=== PATIENT | male | born 1955 | race Caucasian/White ===

== ENCOUNTER 2017-02-18 12:45 | Inpatient (IN) | payer OTHER ==
[~2017-02-18] VITALS: Ht 185.4 cm; Wt 159.9 kg
[~2017-02-18 12:45] MED LIST: ALBU18HF INHALATION; CARSR60 PO; CARV25TA97 PO; CEPH-443 PO; DOXY100T20 PO; FURO40TA4 PO; HYDR-3498 PO; IPRA12.93 INHALATION; LOSA25TA2 PO; MAGN400T27 PO; METF500T PO; NIT4 SL; POTA-57 PO; REPA1TAB14 PO; RIS1 PO
[2017-02-18 15:05] VITALS: Ht 185.4 cm; Wt 159.9 kg
[2017-02-18] MEDS ORDERED: DOCUSATE SODIUM 100 MG CAP PO PRN (16:00)
[2017-02-18] MEDS ORDERED: ONDANSETRON 4 MG INJ IV PRN (16:00)
[2017-02-18] MEDS ORDERED: GLUCOSE GEL 15 GRAM TUBE BUCCAL PRN (16:00)
[2017-02-18] MEDS ORDERED: GLUCAGON 1 MG INJ IM PRN (16:00)
[2017-02-18] MEDS ORDERED: GLUCOSE GEL 15 GRAM TUBE PO PRN ×2 (16:00)
[2017-02-18] MEDS ORDERED: DEXTROSE 50% 50 ML SYRINGE IV PRN ×2 (16:00)
[2017-02-18] MEDS ORDERED: ACETAMINOPHEN 325 MG TAB PO PRN (16:00)
[2017-02-18] MEDS ORDERED: ALBUTEROL 18 GM INHALER INH PRN (16:00)
[2017-02-18] MEDS ORDERED: morphine 2 MG INJ IV PRN (16:00)
[2017-02-18] MEDS ORDERED: NACL 0.9% 3 ML SYG IV SCH (16:00)
[2017-02-18] MEDS ORDERED: NITROGLYCERIN (SL) 0.4 MG TAB SL PRN (16:00)
[2017-02-18 16:10] VITALS: PULSE 88
--- NOTE | 2017-02-18 16:40 | CONS ---
Date/Time of Note Date/Time of Note DATE: 02/18/17 TIME: 16:31 Assessment/Plan Assessment/Plan Additional Assessment/Plan Shortness of breath Chest pain COPD Congestive heart failure, compensated Cardiomyopathy with ejection fraction 50% April 2016 from [facility] facility Hypertension Obesity Psychiatric disorder -Patient with intermittent shortness of breath and chest discomfort. Chest discomfort is sharp in nature not associated with activity and worse with coughing and palpation of chest wall. Laboratory studies from outside facility with troponins of less than 0.012 and 9:13 AM today, BMP 1240. Chest x-ray with no evidence of pleural effusions or significant pulmonary vascular congestion. On review of medical records, patient states he was at [facility] in the past year. I did review electronic medical record discharge summary February 12, 2016 from [facility] records were reviewed from [facility] with cardiac catheterization performed December 27, 2015 with mild nonobstructive coronary artery disease. Given risk factors, would obtain serial cardiac enzymes for thoroughness sake. Continue aspirin therapy and blood pressure control. Check echocardiogram. Consultation Date/Type/Reason Admit Date/Time Feb 18, 2017 at 14:20 Type of Consultation: cv Reason for Consultation Chest pain Hx of Present Illness This is an 61-year-old male with past medical history of hypertension, atrial fibrillation, congestive heart failure, COPD who presents with multiple complaints. Patient complains of symptoms of intermittent shortness of breath. Shortness of breath usually associated with wheezing. He has been having symptoms of a cough over the past few days as well. Cough is mildly productive. He also complains of chest discomfort. Pain is sharp in nature and worse with coughing. He has long-standing history of chest discomfort which lasts for a few days and then resolves. His chest discomfort at times is worse with pressing on his chest. He currently denies any chest discomfort or shortness of breath. He does feel like he is going to start wheezing. He denies any fevers or chills, dizziness or lightheadedness. 12 point review of systems was performed with all pertinent positives and negatives mentioned above and all else is negative Past Medical History Hypertension Congestive heart failure Atrial fibrillation Psychiatric disorder COPD Past Surgical History Past Surgical Hx: no surgical history Family History Significant Family History: no pertinent family hx Social History Smoking Status: Former smoker Other Social History Lives with his brother Exam/Review of Systems Vital Signs Vitals Vital Signs Date Time Temp Pulse Resp B/P Pulse Ox O2 Delivery O2 Flow Rate FiO2 02/18/17 16:10 88 Exam Walking the hallways, no apparent distress Constitutional: alert, obese, oriented Head: normocephalic Neck: supple Respiratory: other (Coarse breath sounds bilaterally, no wheezing) Cardiovascular: other (S1-S2 heard), regular rate and rhythm, systolic murmur ( Faint systolic murmur) Gastrointestinal: bowel sounds, non-tender, other (No guarding), soft Extremities: edema Medications Medications Current Medications Ondansetron HCl (Zofran Inj) 4 mg Q6H PRN IV NAUSEA AND/OR VOMITING; Start 02/18 at 16:00 Acetaminophen (Tylenol Tab) 650 mg Q6H PRN PO PAIN LEVEL 1-3 OR FEVER; Start at 16:00 Acetaminophen/ Hydrocodone Bitart ([place] (5/325)) 1 tab Q6H PRN PO MODERATE PAIN LEVEL 4-6; Start 02/18/17 at 16:00 Morphine Sulfate (morphine) 2 mg Q4H PRN IV SEVERE PAIN LEVEL 7-10; Start at 16:00 Docusate Sodium (Colace) 100 mg Q12H PRN PO CONSTIPATION; Start 02/18/17 at 16: 00 Enoxaparin Sodium (Lovenox) 40 mg DAILY SC ; Start 02/19/17 at 09:00 Aspirin (Aspirin) 81 mg DAILY PO ; Start 02/19/17 at 09:00 Carvedilol (Coreg) 6.25 mg BID PO ; Start 02/18/17 at 21:00 Nitroglycerin (Nitroglycerin (Sl Tab) 0.4 Mg) 1 tab Q5M PRN SL CHEST PAIN; Start 02/18/17 at 16:00 Losartan Potassium (Cozaar) 25 mg DAILY PO ; Start 02/19/17 at 09:00 Risperidone (Risperdal) 1 mg DAILY PO ; Start 02/19/17 at 09:00 Diagnostic Test (Pha) (Accu-Chek) 1 ea 02 XX ; Start 02/19/17 at 02:00 Miscellaneous Information 1 ea NOTE XX ; Start 02/18/17 at 16:00 Glucose (Glutose) 15 gm Q15M PRN PO DECREASED GLUCOSE; Start 02/18/17 at 16:00 Glucose (Glutose) 22.5 gm Q15M PRN PO DECREASED GLUCOSE; Start 02/18/17 at 16:00 Dextrose (D50w Syringe) 25 ml Q15M PRN IV DECREASED GLUCOSE; Start 02/18/17 at 16:00 Dextrose (D50w Syringe) 50 ml Q15M PRN IV DECREASED GLUCOSE; Start 02/18/17 at 16:00 Glucagon (Glucagen) 1 mg Q15M PRN IM DECREASED GLUCOSE; Start 02/18/17 at 16:00 Glucose (Glutose) 15 gm Q15M PRN BUCCAL DECREASED GLUCOSE; Start 02/18/17 at 16: 00 Procedures Procedures ECG done from outside facility and 9:02 AM demonstrates atrial fibrillation at 100 bpm, QRS 106 ms, nonspecific STT wave abnormalities Klaus Emery DO Feb 18, 2017 16:39
[2017-02-18] MEDS: INSULIN ASPART [NOVOLOG] 3 ML PEN SC SCH ×2 (17:20→20:19)
[2017-02-18] MEDS ORDERED: RIVAROXABAN 20 MG TABLET PO SCH (18:05)
--- NOTE | 2017-02-18 19:45 | HP ---
Date/Time of Note Date/Time of Note DATE: 02/18/17 TIME: 19:40 Assessment/Plan VTE Prophylaxis VTE Prophylaxis Intervention: other Lines/Catheters IV Catheter Type (from Nrsg): Saline Lock Assessment/Plan Chief Complaint/Hosp Course 1. Chest pain rule out ACS Trend troponins, cardiology consultation Cardiac meds 2. History of A. fib-rate controlled Cardiology consultation Xarelto and Coreg 3. History of chronic cellulitis in the lower extremities secondary venous stasis-now stable 4. History of psychiatric disorder-no acute issues Prophylaxis: On Xarelto Problems: HPI/ROS Admit Date/Time Admit Date/Time Feb 18, 2017 at 14:20 Hx of Present Illness Patient is a 60-year-old male history of A. fib on anticoagulation, CHF, COPD, diabetes, hypertension, chronic lower extremity cellulitis secondary to venous stasis as well as psychiatric disorder. Patient has had multiple admissions here at [facility] as well as various other hospitals for chest discomfort. Patient presents once again with chest pain he denies any other complaints. ROS Constitutional: improved, no complaints Eyes: no complaints ENT: no complaints Respiratory: no complaints Cardiovascular: chest pain Gastrointestinal: no complaints Genitourinary: no complaints Musculoskeletal: no complaints Skin: no complaints Neurologic: no complaints Endocrine: no complaints Lymphatic: no complaints Psychological: nl mood/affect, no complaints Immunologic: no complaints PMH/Family/Social Past Medical History As per HPI Family History Significant Family History: no pertinent family hx Social History Alcohol Use: heavy Smoking Status: Smoker,current status unk Drug Use: none Exam/Review of Systems Vital Signs Vitals Vital Signs Date Time Temp Pulse Resp B/P Pulse Ox O2 Delivery O2 Flow Rate FiO2 02/18/17 16:10 88 Exam Constitutional: alert Respiratory: clear to auscultation Cardiovascular: regular rate and rhythm Gastrointestinal: soft, No distended Musculoskeletal: nl extremities to inspection Medications Medications Current Medications Ondansetron HCl (Zofran Inj) 4 mg Q6H PRN IV NAUSEA AND/OR VOMITING; Start 02/18 at 16:00 Acetaminophen (Tylenol Tab) 650 mg Q6H PRN PO PAIN LEVEL 1-3 OR FEVER; Start at 16:00 Acetaminophen/ Hydrocodone Bitart ([place] (5/325)) 1 tab Q6H PRN PO MODERATE PAIN LEVEL 4-6; Start 02/18/17 at 16:00 Morphine Sulfate (morphine) 2 mg Q4H PRN IV SEVERE PAIN LEVEL 7-10; Start at 16:00 Docusate Sodium (Colace) 100 mg Q12H PRN PO CONSTIPATION; Start 02/18/17 at 16: 00 Aspirin (Aspirin) 81 mg DAILY PO ; Start 02/19/17 at 09:00 Carvedilol (Coreg) 6.25 mg BID PO ; Start 02/18/17 at 21:00 Nitroglycerin (Nitroglycerin (Sl Tab) 0.4 Mg) 1 tab Q5M PRN SL CHEST PAIN; Start 02/18/17 at 16:00 Losartan Potassium (Cozaar) 25 mg DAILY PO ; Start 02/19/17 at 09:00 Risperidone (Risperdal) 1 mg DAILY PO ; Start 02/19/17 at 09:00 Diagnostic Test (Pha) (Accu-Chek) 1 ea 02 XX ; Start 02/19/17 at 02:00 Miscellaneous Information 1 ea NOTE XX ; Start 02/18/17 at 16:00 Glucose (Glutose) 15 gm Q15M PRN PO DECREASED GLUCOSE; Start 02/18/17 at 16:00 Glucose (Glutose) 22.5 gm Q15M PRN PO DECREASED GLUCOSE; Start 02/18/17 at 16:00 Dextrose (D50w Syringe) 25 ml Q15M PRN IV DECREASED GLUCOSE; Start 02/18/17 at 16:00 Dextrose (D50w Syringe) 50 ml Q15M PRN IV DECREASED GLUCOSE; Start 02/18/17 at 16:00 Glucagon (Glucagen) 1 mg Q15M PRN IM DECREASED GLUCOSE; Start 02/18/17 at 16:00 Glucose (Glutose) 15 gm Q15M PRN BUCCAL DECREASED GLUCOSE; Start 02/18/17 at 16: 00 ALLEGRA RAHMAN Feb 18, 2017 19:45
[2017-02-18 19:58] VITALS: BP 137/93; RESP 18
[2017-02-18 20:08] VITALS: PULSE 89
[2017-02-18] MEDS: HYDROCODONE/APAP (5/325) TAB PO PRN (20:15)
[2017-02-18] MEDS: ALBUTEROL/IPRATROPIUM (NEB) 3 ML AMP HHN PRN (22:29)
[2017-02-19] VITALS (9 sets, daily range): BP systolic 129–149; BP diastolic 78–93; PULSE 83–112; RESP 18–20
[2017-02-19] MEDS ORDERED: ACCU-CHEK XX SCH (02:00)
[2017-02-19] MEDS: HYDROCODONE/APAP (5/325) TAB PO PRN ×3 (02:23→15:18)
[2017-02-19 06:58] LABS: ADD SCAN DIFF NO
[2017-02-19 07:10] LABS: BASOPHILS % 0.1 % (0.0-2.0); HEMATOCRIT 45.5 % (42.0-52.0); LYMPHOCYTES # 0.8 10^3/ul (0.8-2.9); LYMPHOCYTES % 8.4 % (15.0-51.0); MEAN CORPUSCULAR HEMOGLOBIN 29.3 pg (29.0-33.0); MEAN CORPUSCULAR VOLUME 88.9 fl (82.0-101.0); MEAN PLATELET VOLUME 8.9 fl (7.4-10.4); MONOCYTE # 0.5 10^3/ul (0.3-0.9); MONOCYTES % 5.5 % (0.0-11.0); NEUTROPHIL # 8.2 10^3/ul (1.6-7.5); NEUTROPHILS % 85.4 % (39.0-77.0); PLATELET COUNT 184 10^3/UL (140-415); RED BLOOD COUNT 5.12 10^6/ul (4.70-6.10); WHITE BLOOD COUNT 9.6 10^3/ul (4.8-10.8)
[2017-02-19 07:50] LABS: CALCIUM 9.2 mg/dl (8.4-10.2); CREATININE 0.94 mg/dl (0.61-1.24); MAGNESIUM 1.9 mg/dl (1.7-2.5); PHOSPHORUS 3.7 mg/dl (2.5-4.9)
[2017-02-19 07:53] LABS: POTASSIUM 5.4 mmol/L (3.5-5.1)
[2017-02-19] MEDS: INSULIN ASPART [NOVOLOG] 3 ML PEN SC SCH ×2 (08:04→12:07)
[2017-02-19] MEDS ORDERED: ASPIRIN 81 MG TAB PO SCH (09:00)
[2017-02-19] MEDS ORDERED: RISPERIDONE 1 MG TAB PO SCH (09:00)
[2017-02-19] MEDS ORDERED: ENOXAPARIN 40 MG/0.4 ML SYG SC SCH (09:00)
[2017-02-19] MEDS ORDERED: LOSARTAN 25 MG TAB PO SCH (09:00)
--- NOTE | 2017-02-19 10:42 | RADRPT ---
Echocardiogram Report Patient Name: ATILIO BURGESS Gender: Male Date: 1955 Study Date: 19-Feb-2017 School Resource Officer: [facility] Location: 5540 Ref. Physician: KLAUS EMERY Quality: Technically Difficult Study Procedures: Transthoracic echocardiogram with complete 2D, M-Mode, and doppler examination. Indications: Chest Pain, SOB, ? A.S. 2D/M Mode Doppler Measurement Value Normal Ranges Measurement Value Normal Ranges LVIDd 2D 5.9 3.5 - 5.6 cm DARLIN Vmax 0.9 cm2 LVIDs 2D 4.3 2.1 - 4.1 cm DARLIN VTI 0.9 cm2 FS 2D 27.8 % AV Mean Jose 2.3 m/sec LVPWd 2D 1.4 0.6 - 1.1 cm AV Mean PG 24.0 mmHg IVSd 2D 1.3 0.6 - 1.1 cm AV Peak Jose 3.2 m/sec IVS/LVPW 2D 1.0 AV Peak PG 40.0 mmHg AoR Diam 2D 2.9 2.0 - 3.7 cm AV VTI 72.0 cm LA/Ao 2D 2 0 - 1 LVOT Mean Jose 0.7 m/sec EDV 2D 205.0 cm3 LVOT Mean PG 2.0 mmHg ESV 2D 77.3 cm3 LVOT Peak Jose 0.9 m/sec LA Dimen 2D 5.0 2.3 - 4.0 cm LVOT Peak PG 3.0 mmHg LVOT Diam 2.0 cm LVOT VTI 21.1 cm LVOT Area 3.1 cm2 MV E Peak Jose 1.3 m/sec MR Peak PG 45.0 mmHg MR Peak Jose 3.3 m/sec TR Peak Jose 2.8 m/sec TR Peak PG 31.0 mmHg RVSP 46.0 mmHg Findings Left Ventricle: Normal left ventricular systolic function. Normal left ventricular cavity size. Mild concentric left ventricular hypertrophy. Ejection fraction is visually estimated at 55 %. Abnormal Diastolic Function. Right Ventricle: Normal right ventricular size. Normal right ventricular systolic function. Left Atrium: There is moderate enlargement of left atrium. Right Atrium: The right atrium is normal in size. Mitral Valve: Mitral valve leaflets appear mildly thickened. Mild mitral annular calcification. Mild mitral valve regurgitation. Aortic Valve: Moderate aortic stenosis. Aortic valve Max velocity 3.18 m/sec. Max PG 40.00 mmHg. Mean PG 24.00 mmHg. Aortic cusps appear moderately calcified. No aortic regurgitation. Tricuspid Valve: Normal appearance of the tricuspid valve. Estimated peak PA systolic pressure 46 mmHg. There is mild tricuspid regurgitation. Pulmonic Valve: Pulmonic valve not well visualized. There is trace pulmonic regurgitation. Pericardium: Trivial pericardial effusion. Aorta: Normal aortic root. IVC: Dilated inferior vena cava with poor inspiratory collapse consistent with elevated right atrial pressures. Conclusions Normal left ventricular systolic function. Normal left ventricular cavity size. Mild concentric left ventricular hypertrophy. Ejection fraction is visually estimated at 55 %. Abnormal Diastolic Function. Normal right ventricular size. Normal right ventricular systolic function. There is moderate enlargement of left atrium. The right atrium is normal in size. Moderate aortic stenosis. No aortic regurgitation. Mild mitral valve regurgitation. Estimated peak PA systolic pressure 46 mmHg. There is mild tricuspid regurgitation. Trivial pericardial effusion. Electronically Signed By: Klaus Emery 19-Feb-2017 10:41:10 [id number] Patient Name: ATILIO BURGESS Study Date: 19-Feb-2017 [id number]
--- NOTE | 2017-02-19 11:01 | PDOCDIS ---
Discharge Instructions CONDITION Patient Condition: Good HOME CARE INSTRUCTIONS: Diet Instructions: Reduced Calorie ACTIVITY: Activity Restrictions: No Restrictions FOLLOW UP/APPOINTMENTS Follow-up Plan F/U WITH YOUR PCP IN 1-2 WEEKS ALLEGRA RAHMAN Feb 19, 2017 11:00
[2017-02-19] MEDS ORDERED: TIOT18CA INHALATION (11:20)
[2017-02-19] MEDS: ALBUTEROL/IPRATROPIUM (NEB) 3 ML AMP HHN PRN (11:50)
[2017-02-19] MEDS ORDERED: IPRA4AER INHALATION (14:42)
--- NOTE | 2017-02-19 14:49 | DS ---
Date/Time of Note Date/Time of Note DATE: 02/19/17 TIME: 14:44 Discharge Summary Admission/Discharge Info Admit Date/Time Feb 18, 2017 at 14:20 Discharge Date/Time February 19, 2017 Discharge Diagnosis 1. Chest pain likely secondary to COPD: Stable ACS ruled out, cardiology consultation appreciated DC with Combivent 2. History of A. fib-rate controlled Cardiology consultation protruded Continue home meds 3. History of chronic cellulitis in the lower extremities secondary venous stasis-now stable 4. History of psychiatric disorder-no acute issues Consults Cardiology Hospital Course Patient is a 61-year-old male history of morbid obesity, alcohol abuse, psychiatric issues, A. fib with RVR, COPD. Patient has multiple hospitalizations for chest pain as well as A. fib. Patient presents once again with chest pain patient was seen by cardiology and previous records at outside outside hospitals were reviewed there is no indication for further intervention. ACS was ruled out with negative troponins, 2D echo showed abnormal diastolic function and moderate aortic stenosis but no other significant findings, patient was felt to be stable for discharge and on the day of discharge patient, labs and physical exam stable and patient's questions were answered. Home Meds Active Scripts Albuterol/Ipratropium* (Combivent Respimat*) 20-100 Mcg/Inh - 4 Gm Aer.w.adap, 1 PUFF INHALATION QID, #1 INHALER Prov:ALLEGRA RAHMAN 02/19/17 Doxycycline Hyclate* (Doxycycline Hyclate*) 100 Mg Tablet.dr, 100 MG PO BID for 7 Days, TAB Prov:ERICKA PARISH MD 04/07/16 Cephalexin* (Keflex*) 500 Mg Capsule, 500 MG PO QID for 7 Days, CAP Prov:ERICKA PARISH MD 04/07/16 Hydrocodone Bit-Acetaminophen* ([place]*) 5-325 Mg Tab, 2 TAB PO Q4H Y for PAIN, # 60 TAB Prov:BALWINDER WELCH MD 03/17/16 Risperidone* (Risperdal*) 1 Mg Tablet, 1 MG PO DAILY for 30 Days, TAB 1 Refill Prov:ISAIAH SALAZAR 02/26/16 Potassium Chloride* (Klor-Con*) 20 Meq Tabsr, 20 MEQ PO DAILY for 30 Days, TAB Prov:ISAIAH SALAZAR 02/26/16 Nitroglycerin* (Nitrostat*) 0.4 Mg Tab.subl, 1 TAB SL Q5M Y for CHEST PAIN, #10 Prov:ISAIAH SALAZAR. 02/26/16 Magnesium Oxide* (Mag-Oxide*) 400 Mg Tablet, 400 MG PO BID for 30 Days, TAB Prov:ISAIAH SALAZAR . 02/26/16 Losartan Potassium* (Cozaar*) 25 Mg Tablet, 25 MG PO DAILY for 30 Days, TAB 1 Refill Prov:ISAIAH SALAZAR. 02/26/16 Diltiazem Hcl* (Cardizem SR*) 60 Mg Capsr, 60 MG PO DAILY for 30 Days, CAP 2 [facility] 02/26/16 Repaglinide* (Prandin*) 1 Mg Tablet, 1 MG PO AC MEALS for 30 Days, TAB 1 Refill Prov[facility]. 02/26/16 Furosemide* (Furosemide*) 40 Mg Tablet, 40 MG PO DAILY for 30 Days, TAB Prov:ISAIAH SALAZAR . 02/26/16 Metformin Hcl (Glucophage) 500 Mg Tablet, 1000 MG PO BID for 30 Days, 2 Refills Prov:ISAIAH SALAZAR . 02/26/16 Reported Medications Ipratropium [place]* (Atrovent HFA*) 12.9 Gm Aer.w.adap, 2 PUFF INHALATION Q4H for SHORTNESS OF BREATH, #1 INHALER 03/06/16 Albuterol Sulfate* (Ventolin HFA*) 18 Gm Hfa.aer.ad, 2 PUFF INHALATION Q3H, #1 INHALER 03/06/16 Carvedilol* (Coreg*) 25 Mg Tablet, 25 MG PO DAILY, #60 TAB 03/06/16 Follow-up Plan Follow with PCP in 1-2 weeks Primary Care Provider Magi Owens Time spent on discharge: > 30 minutes Pending Labs Laboratory Tests Test 02/18/17 17:05 02/18/17 19:15 02/18/17 19:40 02/19/17 00:30 Bedside Glucose 230mg/dL (70-220) 215mg/dL (70-220) Troponin I < 0.012ng/ml (0.00-0.12) < 0.012ng/ml (0.00-0.12) Test 02/19/17 02:26 02/19/17 06:40 02/19/17 07:55 02/19/17 11:48 Bedside Glucose 172mg/dL (70-220) 250mg/dL (70-220) 152mg/dL (70-220) White Blood Count 9.610^3/ul (4.8-10.8) Red Blood Count 5.1210^6/ul (4.70-6.10) Hemoglobin 15.0g/dl (14.0-18.0) Hematocrit 45.5% (42.0-52.0) Mean Corpuscular Volume 88.9fl (82.0-101.0) Mean Corpuscular Hemoglobin 29.3pg (29.0-33.0) Mean Corpuscular Hemoglobin Concent 33.0g/dl (32.0-37.0) Red Cell Distribution Width 15.0% (11.5-14.5) Platelet Count 50243^3/UL (140-415) Mean Platelet Volume 8.9fl (7.4-10.4) Neutrophils % 85.4% (39.0-77.0) Lymphocytes % 8.4% (15.0-51.0) Monocytes % 5.5% (0.0-11.0) Eosinophils % 0.0% (0.0-7.0) Basophils % 0.1% (0.0-2.0) Nucleated Red Blood Cells % 0.0/100WBC (0.0-0.0) Neutrophils # 8.210^3/ul (1.6-7.5) Lymphocytes # 0.810^3/ul (0.8-2.9) Monocytes # 0.510^3/ul (0.3-0.9) Eosinophils # 0.010^3/ul (0.0-0.5) Basophils # 0.010^3/ul (0.0-0.1) Nucleated Red Blood Cells # 0.010^3/ul (0.0-0.0) Sodium Level 135mmol/L (135-144) Potassium Level 5.4mmol/L (3.5-5.1) Chloride Level 98mmol/L (97-110) Carbon Dioxide Level 25mmol/L (21-31) Anion Gap 17 (8-16) Blood Urea Nitrogen 20mg/dl (7-20) Creatinine 0.94mg/dl (0.61-1.24) Glucose Level 252mg/dl (70-220) Hemoglobin A1c 6.1% (0-5.9) Calcium Level 9.2mg/dl (8.4-10.2) Phosphorus Level 3.7mg/dl (2.5-4.9) Magnesium Level 1.9mg/dl (1.7-2.5) Triglycerides Level 73mg/dl (0-149) Cholesterol Level 210mg/dl (100-200) LDL Cholesterol, Calculated 153mg/dl HDL Cholesterol 42mg/dl (30-78) Cholesterol/HDL Ratio 5.0ALLEGRA BAZZI Feb 19, 2017 14:49
== END 2017-02-19 16:00 | disposition home or self-care (01) | DRG 192 ==
LOC: MS4 14:20
PROVIDERS: ADMIT Internal Medicine; ATTEND Internal Medicine
DX: J44.9 Chronic obstructive pulmonary disease, unspecified (principal); R07.89 Other chest pain; Z86.79 Personal history of other diseases of the circulatory system; Z87.2 Personal history of diseases of the skin and subcutaneous tissue; Z86.59 Personal history of other mental and behavioral disorders
CPT/HCPCS: 80048; 80061; 82962; 83036; 83735; 84100; 84484; 85025; 93306; 94640; 94664; 97162; J1815

== ENCOUNTER 2017-04-02 19:25 | Inpatient (IN) | payer OTHER ==
[~2017-04-02] VITALS: Ht 185.4 cm; Wt 158.9 kg
[~2017-04-02 19:25] MED LIST changes: +IPRA4AER INHALATION
[2017-04-02] MEDS ORDERED: ASPIRIN 325 MG TAB PO STA (19:54)
[2017-04-02 20:33] LABS: BASOPHIL # 0.1 10^3/ul (0.0-0.1); EOSINOPHILS # 0.2 10^3/ul (0.0-0.5); EOSINOPHILS % 1.9 % (0.0-7.0); HEMATOCRIT 45.7 % (42.0-52.0); HEMOGLOBIN 15.4 g/dl (14.0-18.0); LYMPHOCYTES # 1.7 10^3/ul (0.8-2.9); MEAN CORPUSCULAR HEMOGLOBIN 30.7 pg (29.0-33.0); MEAN CORPUSCULAR HGB CONC 33.7 g/dl (32.0-37.0); MEAN PLATELET VOLUME 8.8 fl (7.4-10.4); MONOCYTE # 1.1 10^3/ul (0.3-0.9); MONOCYTES % 13.2 % (0.0-11.0); NEUTROPHILS % 62.7 % (39.0-77.0); PLATELET COUNT 234 10^3/UL (140-415); RED BLOOD COUNT 5.02 10^6/ul (4.70-6.10); RED CELL DISTRIBUTION WIDTH 14.4 % (11.5-14.5); WHITE BLOOD COUNT 8.2 10^3/ul (4.8-10.8)
--- NOTE | 2017-04-02 21:19 | RADRPT ---
PROCEDURE: XR Chest. CLINICAL INDICATION: Chest pain. TECHNIQUE: Portable AP upright view of the chest was obtained. COMPARISON: 03/16/2016 FINDINGS: The cardiomediastinal silhouette is mildly enlarged, stable. The lungs are clear of acute infiltrat es, mild basilar interstitial changes appear chronic and stable. There is no evidence for pleural e ffusion, pneumothorax or pulmonary vascular congestion. The osseous structures are intact with no e vidence for acute abnormality. RPTAT:HJJR IMPRESSION: Stable cardiac silhouette enlargement and mild basilar interstitial changes without evidence for acu te intrathoracic pathology or interval change from 03/16/2016. Physician Low Date Time Electronically viewed and signed by Physician Low on 04/02/2017 21:18 JR/
[2017-04-02 21:21] LABS: INR 0.98
[2017-04-02 21:22] LABS: PARTIAL THROMBOPLASTIN TIME 25.9 Sec (25.0-35.0)
[2017-04-02 21:26] LABS: ANION GAP 21 (8-16); BLOOD UREA NITROGEN 22 mg/dl (7-20); CALCIUM 8.5 mg/dl (8.4-10.2); CARBON DIOXIDE 15 mmol/L (21-31); CHLORIDE 105 mmol/L (97-110); GLUCOSE 129 mg/dl (70-220); POTASSIUM 4.7 mmol/L (3.5-5.1); SODIUM 136 mmol/L (135-144)
[2017-04-02] MEDS ORDERED: morphine 4 MG/ML VIAL IV STA (21:33)
[2017-04-02 21:38] LABS: TROPONIN-I < 0.012 ng/ml (0.00-0.12)
[2017-04-02] MEDS ORDERED: ACETAMINOPHEN 325 MG TAB PO PRN (22:30)
[2017-04-02] MEDS ORDERED: ONDANSETRON 4 MG INJ IV PRN (22:30)
--- NOTE | 2017-04-02 23:32 | ERA ---
ER Documentation Chief Complaint Date/Time DATE: 04/02/17 TIME: 23:18 Chief Complaint KYUNG from [facility] for A-fib w/ RVR HPI This is a 61-year-old male with a past medical history of diabetes, hypertension , heart failure, COPD, recurrent chest pain, atrial fibrillation, electrolyte deficiencies who is presenting with recurrent chest pain. The patient reportedly was diagnosed with atrial fibrillation recently and started on diltiazem and Xarelto. He does not like the bruising that is caused by the Xarelto, and he has not been taking that. The patient has had intermittent episodes of mid substernal and left-sided moderate pressure-like and sharp chest pain radiating to his left arm. He was evaluated by an outside hospital yesterday who evaluated him and ultimately discharged him with a reassuring exam. His symptoms have persisted, which was concerning to him. The patient also endorses chronic alcohol abuse. He was actually on the street today and found by the police intoxicated. It is recommended that he go to the hospital. He went to the same outside facility, which was disconcerting to him. He was ultimately transferred here for further evaluation. He was accepted by his physician as a direct admit, but the patient does have a history of aggressive behavior, and his physician wanted him to be evaluated to see if he was mentally and behaviorally okay for admission. The patient is not agitated or aggressive at this time. He is calm and collected and would just like to have his pain under control. The patient has not felt sick recently. He denies any nausea or vomiting. He denies any abdominal pain at this time. He has no back pain. He has no weakness or numbness or tingling to the face or extremities. ROS All systems reviewed and are negative except as per history of present illness. Medications Home Meds Active Scripts Albuterol/Ipratropium* (Combivent Respimat*) 20-100 Mcg/Inh - 4 Gm Aer.w.adap, 1 PUFF INHALATION QID, #1 INHALER Prov:ALLEGRA RAHMAN 02/19/17 Reported Medications Albuterol Sulfate* (Ventolin HFA*) 18 Gm Hfa.aer.ad, 2 PUFF INHALATION Q3H, #1 INHALER 03/06/16 Discontinued Reported Medications Ipratropium [place]* (Atrovent HFA*) 12.9 Gm Aer.w.adap, 2 PUFF INHALATION Q4H for SHORTNESS OF BREATH, #1 INHALER 03/06/16 Carvedilol* (Coreg*) 25 Mg Tablet, 25 MG PO DAILY, #60 TAB 03/06/16 Discontinued Scripts Doxycycline Hyclate* (Doxycycline Hyclate*) 100 Mg Tablet.dr, 100 MG PO BID for 7 Days, TAB Prov:ERICKA PARISH MD 04/07/16 Cephalexin* (Keflex*) 500 Mg Capsule, 500 MG PO QID for 7 Days, CAP Prov:ERICKA PARISH MD 04/07/16 Hydrocodone Bit-Acetaminophen* ([place]*) 5-325 Mg Tab, 2 TAB PO Q4H Y for PAIN, # 60 TAB Prov:BALWINDER WELCH MD 03/17/16 Risperidone* (Risperdal*) 1 Mg Tablet, 1 MG PO DAILY for 30 Days, TAB 1 [facility] 02/26/16 Potassium Chloride* (Klor-Con*) 20 Meq Tabsr, 20 MEQ PO DAILY for 30 Days, TAB [facility] 02/26/16 Nitroglycerin* (Nitrostat*) 0.4 Mg Tab.subl, 1 TAB SL Q5M Y for CHEST PAIN, #10 Prov:MARIE,[facility]. 02/26/16 Magnesium Oxide* (Mag-Oxide*) 400 Mg Tablet, 400 MG PO BID for 30 Days, TAB [facility] 02/26/16 Losartan Potassium* (Cozaar*) 25 Mg Tablet, 25 MG PO DAILY for 30 Days, TAB 1 [facility] 02/26/16 Diltiazem Hcl* (Cardizem SR*) 60 Mg Capsr, 60 MG PO DAILY for 30 Days, CAP 2 Refills [facility] 02/26/16 Repaglinide* (Prandin*) 1 Mg Tablet, 1 MG PO AC MEALS for 30 Days, TAB 1 [facility] 02/26/16 Furosemide* (Furosemide*) 40 Mg Tablet, 40 MG PO DAILY for 30 Days, TAB [facility] 02/26/16 Metformin Hcl (Glucophage) 500 Mg Tablet, 1000 MG PO BID for 30 Days, 2 Refills Prov:ISAIAH SALAZAR 02/26/16 Allergies Allergies: Coded Allergies: No Known Allergy (Verified , 04/02/17) PMhx/Soc History of Surgery: No Anesthesia Reaction: No Hx Neurological Disorder: No Hx Respiratory Disorders: Yes (COPD ASTHMA) Hx Cardiac Disorders: Yes (HTN A.FIB CHF, SD) Hx Psychiatric Problems: No Hx Miscellaneous Medical Probl: Yes (afib, cellulitis with venous stasis, ETOH , DM) Hx Alcohol Use: Yes Hx Substance Use: No Hx Tobacco Use: Yes Smoking Status: Former smoker FmHx Family History: diabetes Physical Exam Vitals Vital Signs Date Time Temp Pulse Resp B/P Pulse Ox O2 Delivery O2 Flow Rate FiO2 04/02/17 22:50 107 18 138/82 95 Nasal Cannula 2.0 04/02/17 20:00 Nasal Cannula 2 04/02/17 19:33 101.3 112 18 119/79 94 Physical Exam Const: [] Head: Atraumatic Eyes: Normal Conjunctiva ENT: Normal External Ears, Nose and Mouth. Neck: Full range of motion..~ No meningismus. Resp: Clear to auscultation bilaterally Cardio: Regular rate and rhythm, no murmurs Abd: Soft, non tender, non distended. Normal bowel sounds Skin: No petechiae or rashes Back: No midline or flank tenderness Ext: No cyanosis, or edema Neur: Awake and alert Psych: Normal Mood and Affect Result Diagram: 04/02/17204904/02/172049 Results 24 hrs Laboratory Tests Test 04/02/17 20:13 04/02/17 20:50 B-Type Natriuretic Peptide 195PG/ML White Blood Count 8.210^3/ul Red Blood Count 5.0210^6/ul Hemoglobin 15.4g/dl Hematocrit 45.7% Mean Corpuscular Volume 91.0fl Mean Corpuscular Hemoglobin 30.7pg Mean Corpuscular Hemoglobin Concent 33.7g/dl Red Cell Distribution Width 14.4% Platelet Count 88975^3/UL Mean Platelet Volume 8.8fl Neutrophils % 62.7% Lymphocytes % 20.0% Monocytes % 13.2% Eosinophils % 1.9% Basophils % 1.0% Nucleated Red Blood Cells % 0.0/100WBC Neutrophils # (Manual) 510^3/ul Lymphocytes # 1.710^3/ul Monocytes # 1.110^3/ul Eosinophils # 0.210^3/ul Basophils # 0.110^3/ul Nucleated Red Blood Cells # 0.010^3/ul Prothrombin Time 13.0Sec Prothrombin Time Ratio 1.0 INR International Normalized Ratio 0.98 Activated Partial Thromboplast Time 25.9Sec Sodium Level 136mmol/L Potassium Level 4.7mmol/L Chloride Level 105mmol/L Carbon Dioxide Level 15mmol/L Anion Gap 21 Blood Urea Nitrogen 22mg/dl Creatinine 1.30mg/dl Glucose Level 129mg/dl Calcium Level 8.5mg/dl Troponin I < 0.012ng/ml Current Medications Medications (Trade) Dose Ordered Sig/Oj Route PRN Reason Start Time Stop Time Status Last Admin Dose Admin Aspirin (Aspirin) 325 mg ONCE STAT PO 04/02/17 19:54 04/02/17 19:55 DC 04/02/17 20:29 Morphine Sulfate (morphine) 4 mg ONCE STAT IV 04/02/17 21:33 04/02/17 21:34 DC 04/02/17 21:38 Ondansetron HCl (Zofran Inj) 4 mg ER BRIDGE PRN IV NAUSEA AND/OR VOMITING 04/02/17 22:30 04/03/17 22:29 Acetaminophen (Tylenol Tab) 650 mg ER BRIDGE PRN PO MILD PAIN/FEVER 04/02/17 22:30 04/03/17 22:29 Procedures/MDM The patient's presenting with heart failure and warrants further workup. Patient's blood work was obtained and reviewed. The patient's CBC was unremarkable. He does not have leukocytosis, and I do not suspect a systemic infection. The patient's hemoglobin is stable. The patient's BMP demonstrates an elevation of his creatinine, which is likely associated with chronic kidney disease related to his diabetes. The patient's troponin is negative. The patient's EKG demonstrates an irregularly irregular rhythm with a ventricular rate of 103. The patient does appear to be in atrial fibrillation with rapid ventricular response, but he is not so tachycardic as to warrant anticoagulation at this time. The patient does have T-wave inversions in the inferior and lateral leads that should be further assessed. He does not have any findings of an acute coronary syndrome at this time. The patient's chest x-ray was read by the radiologist as a cardiomediastinal silhouette that is mildly enlarged, stable. The lungs are clear of acute infiltrates, mild basilar interstitial changes appear chronic and stable. There is no evidence for pleural effusion, pneumothorax or pulmonary vascular congestion. The osseous structures are intact with no evidence for acute abnormality. I evaluated the patient for his mental status. He is completely alert and oriented. He is not aggressive in the emergency department and I do feel at this time that he is stable for admission. The patient will be admitted to the hospital for further evaluation and management. Departure Diagnosis: Primary Impression: Chest pain Qualified Code: R07.9 - Chest pain, unspecified type Additional Impression: Atrial fibrillation with RVR Condition: Serious IRENA WARD MD Apr 02, 2017 23:30
[2017-04-03] VITALS (14 sets, daily range): BP systolic 108–137; BP diastolic 57–90; PULSE 73–114; RESP 17–20; Ht 185.4 cm; Wt 158.9 kg
[2017-04-03] MEDS ORDERED: ONDANSETRON 4 MG INJ IV PRN (00:30)
[2017-04-03] MEDS ORDERED: DILTIAZEM 25 MG INJ IV ONE (00:30)
[2017-04-03] MEDS ORDERED: GLUCAGON 1 MG INJ IM PRN (01:00)
[2017-04-03] MEDS ORDERED: GLUCOSE GEL 15 GRAM TUBE BUCCAL PRN (01:00)
[2017-04-03] MEDS ORDERED: DEXTROSE 50% 50 ML SYRINGE IV PRN ×2 (01:00)
[2017-04-03] MEDS ORDERED: GLUCOSE GEL 15 GRAM TUBE PO PRN ×2 (01:00)
[2017-04-03] MEDS ORDERED: HEPARIN 5,000 UNIT/0.5 ML VIAL SC SCH ×2 (01:30→09:00)
[2017-04-03] MEDS: morphine 2 MG INJ IV PRN ×5 (01:35→18:34)
[2017-04-03] MEDS: ACCU-CHEK XX SCH ×2 (02:00→22:29)
[2017-04-03 02:57] LABS: CREATINE KINASE 83 IU/L (23-200)
[2017-04-03 03:08] LABS: CK-MB 1.44 ng/ml (0.0-2.4)
[2017-04-03 03:11] LABS: TROPONIN-I < 0.012 ng/ml (0.00-0.12)
[2017-04-03] MEDS ORDERED: METOPROLOL 25 MG TAB PO SCH ×2 (06:00→09:00)
--- NOTE | 2017-04-03 06:51 | HP ---
Date/Time of Note Date/Time of Note DATE: 04/03/17 TIME: 06:29 Assessment/Plan VTE Prophylaxis VTE Prophylaxis Intervention: heparin Lines/Catheters IV Catheter Type (from [facility]): Saline Lock Urinary Cath still in place: No Assessment/Plan Assessment/Plan 1. Chest pain, rule out ACS. Note that patient was recently admitted 5 weeks ago and was ruled out for ACS. He had cardiac cath in December of last year at [facility] which showed mild nonobstructive CAD. -Continue bus monitor -Trend troponins -Supplemental oxygen, aspirin, statin, as needed nitro and morphine -Cardiology consult 2. A-fib with RVR -After admission to telemetry, for a while rate was controlled with 10 mg of IV diltiazem -We will start oral made with as needed IV -Cardiology consult 3. SIRS with possible sepsis from lower extremity cellulitis -We will check urinalysis, urine culture and blood culture -Antibiotic 4. History of COPD -Oxygen and bronchodilators. As needed steroid 5. Nonobstructive CAD, per 2016 echo from [facility] -Continue cardiac meds, including aspirin and statin 6. Diastolic dysfunction -Diuresis 7. History of psychotic disorder: Currently patient appears stable -Continue medication -Telemetry psych consult as needed 8. Reported history of possible alcohol intoxication -We will check alcohol level -PRN Ativan for now but will initiate banana bag, Librium, etc.. As needed HPI/ROS Admit Date/Time Admit Date/Time Apr 02, 2017 at 22:29 Hx of Present Illness This is a 61-year-old male with history of hypertension, A-fib, nonobstructive CAD, COPD, diastolic dysfunction, psychiatric disorder who initially presented to [facility] for evaluation of chest pain. He was transferred to [facility] for insurance reasons. Patient was seen at the [facility] 2 days ago for chest pain and was discharged from ER. Today, he was picked up by police on the street for intoxication. Patient that time complained of chest pain also he was taken to [facility] where he was found to be in A-fib with RVR. Reportedly patient was showing aggressive behavior at the outside hospital. Patient was also admitted here about 6 weeks ago for chest pain. At that time he was ruled out for ACS. 2D echo showed EF of 55% was some diastolic dysfunction. Per cardiology note, from previous admission, he had a cardiac cath in December of last year at [facility], which showed mild non- obstructive CAD. When he presented to the ER today, he was in rapid A-fib and febrile with a temperature of 101.3. Labs shows a bicarb of 15, BUN 22 and a creatinine 1.31 which is new since last admission 6 weeks ago. First troponin is negative and EKG shows A-fib with RVR. . PMH/Family/Social Past Medical History hypertension, A-fib, COPD, diastolic dysfunction, psychiatric disorder Social History Smoking Status: Former smoker Exam/Review of Systems Vital Signs Vitals Vital Signs Date Time Temp Pulse Resp B/P Pulse Ox O2 Delivery O2 Flow Rate FiO2 04/03/17 05:23 98.3 108 17 114/57 96 04/03/17 02:53 2.0 04/02/17 23:50 Nasal Cannula 04/02/17 22:00 28 Intake and Output 04/02/17 04/02/17 04/03/17 15:00 23:00 07:00 Intake Total 500 ml Balance 500 ml Exam Constitutional: other (Sleepy but arousable) Head: atraumatic, normocephalic Eyes: EOMI, PERRL Respiratory: clear to auscultation, normal air movement Cardiovascular: nl pulses, regular rate and rhythm Gastrointestinal: non-tender, soft Extremities: other (Lower extremity venous stasis change with possible underlying cellulitis) Labs Result Diagram: 04/02/17204904/02/172049 Medications Medications Current Medications Aspirin (Aspirin) 81 mg DAILY PO ; Start 04/03/17 at 09:00 Ondansetron HCl (Zofran Inj) 4 mg Q6H PRN IV NAUSEA AND/OR VOMITING; Start at 00:30 Acetaminophen (Tylenol Tab) 650 mg Q6H PRN PO PAIN AND OR ELEVATED TEMP; Start 04/03/17 at 00:30 Morphine Sulfate (morphine) 2 mg Q4H PRN IV PAIN Last administered on t 05:46; Admin Dose 2 MG; Start 04/03/17 at 00:30 Diagnostic Test (Pha) (Accu-Chek) 1 ea 02 XX ; Start 04/03/17 at 02:00 Miscellaneous Information 1 ea NOTE XX ; Start 8/19/17 at 01:00 Glucose (Glutose) 15 gm Q15M PRN PO DECREASED GLUCOSE; Start 04/03/17 at 01:00 Glucose (Glutose) 22.5 gm Q15M PRN PO DECREASED GLUCOSE; Start 04/03/17 at 01: 00 Dextrose (D50w Syringe) 25 ml Q15M PRN IV DECREASED GLUCOSE; Start 04/03/17 at 01:00 Dextrose (D50w Syringe) 50 ml Q15M PRN IV DECREASED GLUCOSE; Start 04/03/17 at 01:00 Glucagon (Glucagen) 1 mg Q15M PRN IM DECREASED GLUCOSE; Start 04/03/17 at 01:00 Glucose (Glutose) 15 gm Q15M PRN BUCCAL DECREASED GLUCOSE; Start 04/03/17 at 01 :00 Heparin Sodium (Porcine) (Heparin (5000 Units/0.5 ml)) 5,000 unit BID SC ; Start 04/03/17 at 09:00 Metoprolol Tartrate (Lopressor) 25 mg BID PO Last administered on 04/03/17t 05: 44; Admin Dose 25 MG; Start 04/03/17 at 06:00 BALWINDER WELCH MD Apr 03, 2017 06:47
[2017-04-03] MEDS: INSULIN ASPART [NOVOLOG] 3 ML PEN SC SCH ×4 (08:00→20:28)
[2017-04-03] MEDS: ALBUTEROL/IPRATROPIUM (NEB) 3 ML AMP HHN PRN ×2 (08:49→14:08)
[2017-04-03 09:17] LABS: CREATINE KINASE 70 IU/L (23-200)
[2017-04-03 09:33] LABS: CK-MB 1.12 ng/ml (0.0-2.4); TROPONIN-I < 0.012 ng/ml (0.00-0.12)
[2017-04-03] MEDS: ASPIRIN 81 MG TAB PO SCH (09:52)
[2017-04-03] MEDS: DILTIAZEM (CD) 120 MG CAP PO SCH (09:52)
[2017-04-03] MEDS: ACETAMINOPHEN 325 MG TAB PO PRN ×2 (10:01→14:44)
[2017-04-03 11:27] LABS: ADD UMIC NO; UR ASCORBIC ACID NEGATIVE (NEGATIVE); UR BILIRUBIN (Dip) NEGATIVE (NEGATIVE); UR BLOOD (Dip) NEGATIVE (NEGATIVE); UR CLARITY CLEAR (CLEAR); UR COLOR YELLOW (YELLOW); UR GLUCOSE (Dip) NEGATIVE (NEGATIVE); UR KETONES (Dip) NEGATIVE (NEGATIVE); UR LEUKOCYTE ESTERASE (Dip) NEGATIVE Leu/ul (NEGATIVE); UR NITRITE (Dip) NEGATIVE (NEGATIVE); UR SPECIFIC GRAVITY (Dip) 1.018 (1.003-1.030); UR TOTAL PROTEIN (Dip) NEGATIVE (NEGATIVE); UR UROBILINOGEN (Dip) NEGATIVE (NEGATIVE)
[2017-04-03 11:49] LABS: BARBITURATES Negative (NEGATIVE); BENZODIAZEPINES Negative (NEGATIVE); CANNABINOIDS Negative (NEGATIVE); COCAINE Negative (NEGATIVE); OPIATES Positive (NEGATIVE)
[2017-04-03] MEDS: TRIMETHOPRIM/SULFAMETHOX (DS) TAB PO SCH ×2 (12:18→20:27)
[2017-04-03] MEDS: APIXABAN 5 MG TABLET PO SCH (20:27)
[2017-04-04] VITALS (12 sets, daily range): BP systolic 105–159; BP diastolic 63–86; PULSE 74–96; RESP 16–19
[2017-04-04] MEDS: morphine 2 MG INJ IV PRN ×4 (01:21→19:03)
[2017-04-04] MEDS: ALBUTEROL/IPRATROPIUM (NEB) 3 ML AMP HHN PRN ×3 (02:40→23:01)
[2017-04-04 07:51] LABS: BASOPHIL # 0.1 10^3/ul (0.0-0.1); EOSINOPHILS # 0.4 10^3/ul (0.0-0.5); EOSINOPHILS % 4.2 % (0.0-7.0); HEMATOCRIT 43.5 % (42.0-52.0); LYMPHOCYTES # 1.6 10^3/ul (0.8-2.9); LYMPHOCYTES % 19.4 % (15.0-51.0); MEAN CORPUSCULAR HGB CONC 32.2 g/dl (32.0-37.0); MEAN CORPUSCULAR VOLUME 93.3 fl (82.0-101.0); MEAN PLATELET VOLUME 9.1 fl (7.4-10.4); MONOCYTE # 0.7 10^3/ul (0.3-0.9); MONOCYTES % 8.6 % (0.0-11.0); NEUTROPHILS % 66.2 % (39.0-77.0); PLATELET COUNT 199 10^3/UL (140-415); RED BLOOD COUNT 4.66 10^6/ul (4.70-6.10); RED CELL DISTRIBUTION WIDTH 14.7 % (11.5-14.5); WHITE BLOOD COUNT 8.3 10^3/ul (4.8-10.8)
[2017-04-04] MEDS: INSULIN ASPART [NOVOLOG] 3 ML PEN SC SCH ×4 (08:00→21:00)
[2017-04-04 08:13] LABS: CALCIUM 8.8 mg/dl (8.4-10.2); CHOL/HDL RATIO 4.5 RATIO; CREATININE 0.93 mg/dl (0.61-1.24); MAGNESIUM 1.9 mg/dl (1.7-2.5); PHOSPHORUS 2.8 mg/dl (2.5-4.9); POTASSIUM 4.4 mmol/L (3.5-5.1)
[2017-04-04] MEDS: ASPIRIN 81 MG TAB PO SCH (08:33)
[2017-04-04] MEDS: APIXABAN 5 MG TABLET PO SCH ×2 (08:33→21:23)
[2017-04-04] MEDS: TRIMETHOPRIM/SULFAMETHOX (DS) TAB PO SCH ×2 (08:33→21:23)
[2017-04-04] MEDS: DILTIAZEM (CD) 120 MG CAP PO SCH (08:41)
[2017-04-04 08:44] LABS: THYROID STIMULATING HORMONE 2.55 MIU/L (0.465-4.680)
[2017-04-04] MEDS ORDERED: DILTIAZEM (CD) 120 MG CAP PO ONE (16:30)
[2017-04-04] MEDS: HYDROCODONE/APAP (5/325) TAB PO PRN ×2 (17:23→21:22)
[2017-04-04] MEDS: ARTIFICIAL TEARS 15 ML OPH BOTH EYES SCH ×2 (17:23→21:26)
--- NOTE | 2017-04-04 19:01 | PN ---
Date/Time of Note Date/Time of Note DATE: 04/04/17 TIME: 18:55 Assessment/Plan VTE Prophylaxis VTE Prophylaxis Intervention: other Lines/Catheters IV C[facility]ter Type (from [facility] Saline Lock Urinary Cath still in place: No Assessment/Plan Chief Complaint/Hosp Course 1. Chest pain- possible secondary to A. fib with RVR -no evidence of ACS with negative troponins -Patient had cardiac cath in December of last year at [facility] which showed mild nonobstructive CAD the patient reports a stress test a month ago that was negative -Patient has multiple hospitalizations for chest pain there is no indication of cardiology consultation is time -Continue component assembler -Have increased Cardizem to 240 daily to improve rate -Supplemental oxygen, aspirin, statin, as needed nitro and morphine 2. A-fib with RVR-rate improved -Increase Cardizem to 240 daily -Resume home Eliquis 3. SIRS-resolved -No evidence of cellulitis, UA is negative as his chest x-ray -We will check urinalysis, urine culture and blood culture -Continue Bactrim as he does have a history of recurrent lower extremities cellulitis from lymphedema 4. History of COPD -Oxygen and bronchodilators. As needed steroid 5. Nonobstructive CAD, per 2016 echo from [facility] -Continue cardiac meds, including aspirin and statin 6. Diastolic dysfunction -Diuresis 7. History of psychotic disorder: Currently patient appears stable -Continue medication -Telemetry psych consult as needed 8. History of alcohol abuse -PRN Ativan for now but will initiate banana bag, Librium, etc 9. Conjunctivitis-likely viral versus corneal irritation -Artificial tears Prophylaxis: Eliquis Problems: Subjective 24 Hr Interval Summary Eyes: redness Exam/Review of Systems Vital Signs Vitals Vital Signs Date Time Temp Pulse Resp B/P Pulse Ox O2 Delivery O2 Flow Rate FiO2 04/04/17 17:34 98.1 75 16 131/74 96 Room Air 04/04/17 10:12 2.0 04/04/17 02:40 28 Intake and Output 04/03/17 04/03/17 04/04/17 15:00 23:00 07:00 Intake Total 900 ml 1000 ml Balance 900 ml 1000 ml Exam Constitutional: alert, oriented Respiratory: clear to auscultation Cardiovascular: irregular rhythm Gastrointestinal: soft, No distended Musculoskeletal: No nl extremities to inspection Results Result Diagram: 04/04/17 0711 04/04/17 0711 Results 24 hrs Laboratory Tests Test 04/03/17 20:24 04/04/17 07:11 04/04/17 08:32 04/04/17 12:12 Bedside Glucose 152 111 120 White Blood Count 8.3 Red Blood Count 4.66 L Hemoglobin 14.0 Hematocrit 43.5 Mean Corpuscular Volume 93.3 Mean Corpuscular Hemoglobin 30.0 Mean Corpuscular Hemoglobin Concent 32.2 Red Cell Distribution Width 14.7 H Platelet Count 199 Mean Platelet Volume 9.1 Neutrophils % 66.2 Lymphocytes % 19.4 Monocytes % 8.6 Eosinophils % 4.2 Basophils % 1.0 Nucleated Red Blood Cells % 0.0 Neutrophils # (Manual) 6 Lymphocytes # 1.6 Monocytes # 0.7 Eosinophils # 0.4 Basophils # 0.1 Nucleated Red Blood Cells # 0.0 Sodium Level 140 Potassium Level 4.4 Chloride Level 99 Carbon Dioxide Level 28 # Anion Gap 17 H Blood Urea Nitrogen 18 Creatinine 0.93 Glucose Level 120 Hemoglobin A1c 6.0 H Calcium Level 8.8 Phosphorus Level 2.8 Magnesium Level 1.9 Triglycerides Level 123 Cholesterol Level 164 LDL Cholesterol, Calculated 103 HDL Cholesterol 36 Cholesterol/HDL Ratio 4.5 Thyroid Stimulating Hormone (TSH) 2.550 Test 04/04/17 17:22 Bedside Glucose 109 Medications Medications Current Medications Aspirin (Aspirin) 81 mg DAILY PO Last administered on 04/04/17 08:33; Admin Dose 81 MG; Start 04/03/17 at 09:00 Ondansetron HCl (Zofran Inj) 4 mg Q6H PRN IV NAUSEA AND/OR VOMITING; Start at 00:30 Acetaminophen (Tylenol Tab) 650 mg Q6H PRN PO PAIN AND OR ELEVATED TEMP Last administered on 04/03/17 14:44; Admin Dose 650 MG; Start 04/03/17 at 00:30 Morphine Sulfate (morphine) 2 mg Q4H PRN IV BREAKTHROUGH PAIN Last administered on 04/04/17 13:05; Admin Dose 2 MG; Start 04/03/17 at 00:30 Diagnostic Test (Pha) (Accu-Chek) 1 ea 02 XX ; Start 04/03/17 at 02:00 Miscellaneous Information 1 ea NOTE XX ; Start 04/03/17 at 01:00 Glucose (Glutose) 15 gm Q15M PRN PO DECREASED GLUCOSE; Start 04/03/17 at 01:00 Glucose (Glutose) 22.5 gm Q15M PRN PO DECREASED GLUCOSE; Start 04/03/17 at 01: 00 Dextrose (D50w Syringe) 25 ml Q15M PRN IV DECREASED GLUCOSE; Start 04/03/17 at 01:00 Dextrose (D50w Syringe) 50 ml Q15M PRN IV DECREASED GLUCOSE; Start 04/03/17 at 01:00 Glucagon (Glucagen) 1 mg Q15M PRN IM DECREASED GLUCOSE; Start 04/03/17 at 01:00 Glucose (Glutose) 15 gm Q15M PRN BUCCAL DECREASED GLUCOSE; Start 04/03/17 at 01 :00 Trimethoprim/ Sulfamethoxazole (Bactrim (Ds)) 1 tab BID PO Last administered on 04/04/17 08:33; Admin Dose 1 TAB; Start 04/03/17 at 10:00 Apixaban (Eliquis) 5 mg BID PO Last administered on 04/04/17 08:33; Admin Dose 5 MG; Start 04/03/17 at 21:00 Diltiazem HCl (Cardizem Cd) 240 mg DAILY PO ; Start 04/05/17 at 09:00 Acetaminophen/ Hydrocodone Bitart ([place] (5/325)) 1 tab Q4H PRN PO SEVERE PAIN LEVEL 7-10 Last administered on 04/04/17 17:23; Admin Dose 1 TAB; Start at 15:30 Eye Lubricant (Artificial Tears Oph) 2 drop QID BOTH EYES Last administered on 04/04/17 17:23; Admin Dose 2 DROP; Start 04/04/17 at 17:00; Stop 04/05/17 at 13 :01 ALLEGRA RAHMAN Apr 04, 2017 19:01
[2017-04-05] VITALS (13 sets, daily range): BP systolic 113–142; BP diastolic 57–79; PULSE 78–110; RESP 18–20
[2017-04-05] MEDS: ACCU-CHEK XX SCH (02:00)
[2017-04-05] MEDS: HYDROCODONE/APAP (5/325) TAB PO PRN ×4 (04:02→20:57)
[2017-04-05] MEDS: morphine 2 MG INJ IV PRN ×3 (06:50→23:51)
[2017-04-05] MEDS: INSULIN ASPART [NOVOLOG] 3 ML PEN SC SCH ×4 (08:00→21:14)
[2017-04-05] MEDS: APIXABAN 5 MG TABLET PO SCH ×2 (08:01→20:58)
[2017-04-05] MEDS: ASPIRIN 81 MG TAB PO SCH (08:01)
[2017-04-05] MEDS: TRIMETHOPRIM/SULFAMETHOX (DS) TAB PO SCH ×2 (08:02→20:58)
[2017-04-05] MEDS: ARTIFICIAL TEARS 15 ML OPH BOTH EYES SCH ×2 (08:02→14:26)
[2017-04-05 08:15] LABS: BASOPHIL # 0.1 10^3/ul (0.0-0.1); EOSINOPHILS # 0.4 10^3/ul (0.0-0.5); EOSINOPHILS % 6.1 % (0.0-7.0); HEMATOCRIT 44.5 % (42.0-52.0); HEMOGLOBIN 14.3 g/dl (14.0-18.0); LYMPHOCYTES # 1.4 10^3/ul (0.8-2.9); LYMPHOCYTES % 20.2 % (15.0-51.0); MEAN CORPUSCULAR HGB CONC 32.1 g/dl (32.0-37.0); MEAN CORPUSCULAR VOLUME 93.5 fl (82.0-101.0); MEAN PLATELET VOLUME 9.2 fl (7.4-10.4); MONOCYTE # 0.5 10^3/ul (0.3-0.9); MONOCYTES % 7.8 % (0.0-11.0); NEUTROPHILS % 63.9 % (39.0-77.0); PLATELET COUNT 197 10^3/UL (140-415); RED BLOOD COUNT 4.76 10^6/ul (4.70-6.10); RED CELL DISTRIBUTION WIDTH 14.6 % (11.5-14.5); WHITE BLOOD COUNT 6.9 10^3/ul (4.8-10.8)
[2017-04-05 08:29] LABS: CALCIUM 9.1 mg/dl (8.4-10.2); CREATININE 0.97 mg/dl (0.61-1.24); MAGNESIUM 1.7 mg/dl (1.7-2.5); POTASSIUM 4.4 mmol/L (3.5-5.1)
[2017-04-05] MEDS: DILTIAZEM (CD) 240 MG CAP PO SCH (09:39)
[2017-04-05] MEDS: ALBUTEROL/IPRATROPIUM (NEB) 3 ML AMP HHN PRN (16:00)
[2017-04-05] MEDS: CIPROFLOXACIN 0.3% 2.5 ML OPH RIGHT EYE SCH ×2 (16:25→23:52)
[2017-04-05] MEDS ORDERED: METHOCARBAMOL 500 MG TAB PO ONE (16:30)
--- NOTE | 2017-04-05 18:27 | PN ---
Date/Time of Note Date/Time of Note DATE: 04/05/17 TIME: 18:25 Assessment/Plan VTE Prophylaxis VTE Prophylaxis Intervention: other (Eliquis ) Lines/Catheters IV Catheter Type (from Nrs): Saline Lock Urinary Cath still in place: No Assessment/Plan Assessment/Plan 1. Chest pain- possible secondary to A. fib with RVR -no evidence of ACS with negative troponins -Patient had cardiac cath in December of last year at [facility] which showed mild nonobstructive CAD the patient reports a stress test a month ago that was negative -Patient has multiple hospitalizations for chest pain there is no indication of cardiology consultation is time -Continue traffic monitor specialist -Have increased Cardizem to 240 daily to improve rate - will give robaxin 1000mg BID for muscle relaxant for nonspecific chest pain 2. A-fib with RVR-rate improved -Increase Cardizem to 240 daily -Resume home Eliquis 3. SIRS-resolved -No evidence of cellulitis, UA is negative as his chest x-ray -We will check urinalysis, urine culture and blood culture -Continue Bactrim as he does have a history of recurrent lower extremities cellulitis from lymphedema 4. History of COPD -Oxygen and bronchodilators. As needed steroid 5. Nonobstructive CAD, per 2016 echo from [facility] -Continue cardiac meds, including aspirin and statin 6. Diastolic dysfunction -Diuresis 7. History of psychotic disorder: Currently patient appears stable -Continue medication -Telemetry psych consult as needed 8. History of alcohol abuse -PRN Ativan for now but will initiate banana bag, Librium, etc 9. Conjunctivitis-likely viral versus corneal irritation -Artificial tears Prophylaxis: Eliquis Subjective 24 Hr Interval Summary Free Text/Dictation still c/o abdominal pain, BP stable, non specific features of chest pain Exam/Review of Systems Vital Signs Vitals Vital Signs Date Time Temp Pulse Resp B/P Pulse Ox O2 Delivery O2 Flow Rate FiO2 04/05/17 16:40 2.0 04/05/17 16:40 104 20 97 Nasal Cannula 04/05/17 15:49 97.9 142/79 04/04/17 02:40 28 Exam Constitutional: alert, oriented Respiratory: clear to auscultation Cardiovascular: irregular rhythm Gastrointestinal: soft, No distended Musculoskeletal: No nl extremities to inspection Results Result Diagram: 04/05/17 0734 04/05/17 0734 Results 24 hrs Laboratory Tests Test 04/04/17 21:09 04/05/17 07:34 04/05/17 07:49 04/05/17 13:43 Bedside Glucose 132 114 86 White Blood Count 6.9 Red Blood Count 4.76 Hemoglobin 14.3 Hematocrit 44.5 Mean Corpuscular Volume 93.5 Mean Corpuscular Hemoglobin 30.0 Mean Corpuscular Hemoglobin Concent 32.1 Red Cell Distribution Width 14.6 H Platelet Count 197 Mean Platelet Volume 9.2 Neutrophils % 63.9 Lymphocytes % 20.2 Monocytes % 7.8 Eosinophils % 6.1 Basophils % 1.0 Nucleated Red Blood Cells % 0.0 Neutrophils # (Manual) 4 Lymphocytes # 1.4 Monocytes # 0.5 Eosinophils # 0.4 Basophils # 0.1 Nucleated Red Blood Cells # 0.0 Sodium Level 137 Potassium Level 4.4 Chloride Level 99 Carbon Dioxide Level 29 Anion Gap 13 Blood Urea Nitrogen 15 Creatinine 0.97 Glucose Level 103 Calcium Level 9.1 Magnesium Level 1.7 Test 04/05/17 17:12 Bedside Glucose 117 Medications Medications Current Medications Aspirin (Aspirin) 81 mg DAILY PO Last administered on 04/05/17 08:01; Admin Dose 81 MG; Start 04/03/17 at 09:00 Ondansetron HCl (Zofran Inj) 4 mg Q6H PRN IV NAUSEA AND/OR VOMITING; Start at 00:30 Acetaminophen (Tylenol Tab) 650 mg Q6H PRN PO PAIN AND OR ELEVATED TEMP Last administered on 04/03/17 14:44; Admin Dose 650 MG; Start 04/03/17 at 00:30 Morphine Sulfate (morphine) 2 mg Q4H PRN IV BREAKTHROUGH PAIN Last administered on 04/05/17 17:24; Admin Dose 2 MG; Start 04/03/17 at 00:30 Diagnostic Test (Pha) (Accu-Chek) 1 ea 02 XX ; Start 04/03/17 at 02:00 Miscellaneous Information 1 ea NOTE XX ; Start 04/03/17 at 01:00 Glucose (Glutose) 15 gm Q15M PRN PO DECREASED GLUCOSE; Start 04/03/17 at 01:00 Glucose (Glutose) 22.5 gm Q15M PRN PO DECREASED GLUCOSE; Start 04/03/17 at 01: 00 Dextrose (D50w Syringe) 25 ml Q15M PRN IV DECREASED GLUCOSE; Start 04/03/17 at 01:00 Dextrose (D50w Syringe) 50 ml Q15M PRN IV DECREASED GLUCOSE; Start 04/03/17 at 01:00 Glucagon (Glucagen) 1 mg Q15M PRN IM DECREASED GLUCOSE; Start 04/03/17 at 01:00 Glucose (Glutose) 15 gm Q15M PRN BUCCAL DECREASED GLUCOSE; Start 04/03/17 at 01 :00 Trimethoprim/ Sulfamethoxazole (Bactrim (Ds)) 1 tab BID PO Last administered on 04/05/17 08:02; Admin Dose 1 TAB; Start 04/03/17 at 10:00 Apixaban (Eliquis) 5 mg BID PO Last administered on 04/05/17 08:01; Admin Dose 5 MG; Start 04/03/17 at 21:00 Diltiazem HCl (Cardizem Cd) 240 mg DAILY PO Last administered on 04/05/17 09: 39; Admin Dose 240 MG; Start 04/05/17 at 09:00 Acetaminophen/ Hydrocodone Bitart ([place] (5/325)) 1 tab Q4H PRN PO SEVERE PAIN LEVEL 7-10 Last administered on 04/05/17 14:26; Admin Dose 1 TAB; Start at 15:30 Ciprofloxacin HCl (Ciloxan 0.3% Oph) 2 drop TID RIGHT EYE Last administered on 04/05/17 16:25; Admin Dose 2 DROP; Start 04/05/17 at 16:30 Methocarbamol (Robaxin) 1,000 mg BID PO ; Start 04/06/17 at 09:00 OWEN MARTIN MD Apr 05, 2017 18:27
[2017-04-06] VITALS (9 sets, daily range): BP systolic 98–137; BP diastolic 54–88; PULSE 80–90; RESP 18–22
[2017-04-06] MEDS: ALBUTEROL/IPRATROPIUM (NEB) 3 ML AMP HHN PRN ×2 (01:43→11:47)
[2017-04-06] MEDS: ACCU-CHEK XX SCH (02:00)
[2017-04-06] MEDS: HYDROCODONE/APAP (5/325) TAB PO PRN ×5 (03:51→23:12)
[2017-04-06] MEDS: INSULIN ASPART [NOVOLOG] 3 ML PEN SC SCH ×4 (08:00→21:00)
[2017-04-06] MEDS: APIXABAN 5 MG TABLET PO SCH ×2 (08:13→21:57)
[2017-04-06] MEDS: ASPIRIN 81 MG TAB PO SCH (08:14)
[2017-04-06] MEDS: METHOCARBAMOL 500 MG TAB PO SCH ×2 (08:14→21:56)
[2017-04-06] MEDS: TRIMETHOPRIM/SULFAMETHOX (DS) TAB PO SCH ×2 (08:15→21:58)
[2017-04-06] MEDS: DILTIAZEM (CD) 240 MG CAP PO SCH (08:16)
[2017-04-06] MEDS: CIPROFLOXACIN 0.3% 2.5 ML OPH RIGHT EYE SCH ×3 (08:19→21:50)
[2017-04-06] MEDS: morphine 2 MG INJ IV PRN ×2 (14:40→21:59)
--- NOTE | 2017-04-06 22:11 | PN ---
Date/Time of Note Date/Time of Note DATE: 04/06/17 TIME: 22:10 Assessment/Plan VTE Prophylaxis VTE Prophylaxis Intervention: SCD's, other (Eliquis ) Lines/Catheters IV Catheter Type (from Nrs): Saline Lock Urinary Cath still in place: No Assessment/Plan Assessment/Plan 1. Chest pain- possible secondary to A. 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 A-fib with RVR-rate improved -Increase Cardizem to 240 daily -Resume home Eliquis 3. SIRS-resolved -No evidence of cellulitis, UA is negative as his chest x-ray -We will check urinalysis, urine culture and blood culture -Continue Bactrim as he does have a history of recurrent lower extremities cellulitis from lymphedema 4. History of COPD -Oxygen and bronchodilators. As needed steroid 5. Nonobstructive CAD, per 2016 echo from [facility] -Continue cardiac meds, including aspirin and statin 6. Diastolic dysfunction -Diuresis 7. History of psychotic disorder: Currently patient appears stable -Continue medication -Telemetry psych consult as needed 8. History of alcohol abuse -PRN Ativan for now but will initiate banana bag, Librium, etc 9. Conjunctivitis-likely viral versus corneal irritation -Artificial tears Prophylaxis: Lobo Case manageemnt Consult for SNF placement Downgrade to med/surge floor Subjective 24 Hr Interval Summary Free Text/Dictation c/o non specific chest pain, BP stable, tele nromal Exam/Review of Systems Vital Signs Vitals Vital Signs Date Time Temp Pulse Resp B/P Pulse Ox O2 Delivery O2 Flow Rate FiO2 04/06/17 20:02 98.0 92 18 98/54 100 04/06/17 11:47 Nasal Cannula 2.0 04/04/17 02:40 28 Intake and Output 04/05/17 04/05/17 04/06/17 15:00 23:00 07:00 Intake Total 1000 ml Balance 1000 ml Results Result Diagram: 04/05/17 0734 04/05/17 0734 Results 24 hrs Laboratory Tests Test 04/06/17 08:12 04/06/17 10:59 04/06/17 12:01 04/06/17 17:31 Bedside Glucose 93 100 149 Lab Scanned Report REFERENCE LAB Test 04/06/17 21:46 Bedside Glucose 135 Medications Medications Current Medications Aspirin (Aspirin) 81 mg DAILY PO Last administered on 04/06/17 08:14; Admin Dose 81 MG; Start 04/03/17 at 09:00 Ondansetron HCl (Zofran Inj) 4 mg Q6H PRN IV NAUSEA AND/OR VOMITING; Start at 00:30 Acetaminophen (Tylenol Tab) 650 mg Q6H PRN PO PAIN AND OR ELEVATED TEMP Last administered on 04/03/17 14:44; Admin Dose 650 MG; Start 04/03/17 at 00:30 Morphine Sulfate (morphine) 2 mg Q4H PRN IV BREAKTHROUGH PAIN Last administered on 04/06/17 21:59; Admin Dose 2 MG; Start 04/03/17 at 00:30 Diagnostic Test (Pha) (Accu-Chek) 1 ea 02 XX ; Start 04/03/17 at 02:00 Miscellaneous Information 1 ea NOTE XX ; Start 04/03/17 at 01:00 Glucose (Glutose) 15 gm Q15M PRN PO DECREASED GLUCOSE; Start 04/03/17 at 01:00 Glucose (Glutose) 22.5 gm Q15M PRN PO DECREASED GLUCOSE; Start 04/03/17 at 01: 00 Dextrose (D50w Syringe) 25 ml Q15M PRN IV DECREASED GLUCOSE; Start 04/03/17 at 01:00 Dextrose (D50w Syringe) 50 ml Q15M PRN IV DECREASED GLUCOSE; Start 04/03/17 at 01:00 Glucagon (Glucagen) 1 mg Q15M PRN IM DECREASED GLUCOSE; Start 04/03/17 at 01:00 Glucose (Glutose) 15 gm Q15M PRN BUCCAL DECREASED GLUCOSE; Start 04/03/17 at 01 :00 Trimethoprim/ Sulfamethoxazole (Bactrim (Ds)) 1 tab BID PO Last administered on 04/06/17 21:58; Admin Dose 1 TAB; Start 04/03/17 at 10:00 Apixaban (Eliquis) 5 mg BID PO Last administered on 04/06/17 21:57; Admin Dose 5 MG; Start 04/03/17 at 21:00 Diltiazem HCl (Cardizem Cd) 240 mg DAILY PO Last administered on 04/06/17 08: 16; Admin Dose 240 MG; Start 04/05/17 at 09:00 Acetaminophen/ Hydrocodone Bitart ([place] (5/325)) 1 tab Q4H PRN PO SEVERE PAIN LEVEL 7-10 Last administered on 04/06/17 17:58; Admin Dose 1 TAB; Start at 15:30 Ciprofloxacin HCl (Ciloxan 0.3% Oph) 2 drop TID RIGHT EYE Last administered on 04/06/17 21:50; Admin Dose 2 DROP; Start 04/05/17 at 16:30 Methocarbamol (Robaxin) 1,000 mg BID PO Last administered on 04/06/17 21:56; Admin Dose 1,000 MG; Start 04/06/17 at 09:00 OWEN MARTIN MD Apr 06, 2017 22:11
[2017-04-07] MEDS: ALBUTEROL/IPRATROPIUM (NEB) 3 ML AMP HHN PRN ×3 (00:22→14:15)
[2017-04-07] MEDS: ACCU-CHEK XX SCH (01:57)
[2017-04-07 02:19] VITALS: BP 104/58; RESP 18
[2017-04-07] MEDS: morphine 2 MG INJ IV PRN ×2 (04:33→23:14)
[2017-04-07] MEDS: INSULIN ASPART [NOVOLOG] 3 ML PEN SC SCH ×4 (08:00→21:00)
[2017-04-07] MEDS: METHOCARBAMOL 500 MG TAB PO SCH ×2 (08:23→22:15)
[2017-04-07] MEDS: HYDROCODONE/APAP (5/325) TAB PO PRN ×4 (08:23→22:21)
[2017-04-07] MEDS: TRIMETHOPRIM/SULFAMETHOX (DS) TAB PO SCH ×2 (08:23→22:15)
[2017-04-07] MEDS: DILTIAZEM (CD) 240 MG CAP PO SCH (08:24)
[2017-04-07] MEDS: ASPIRIN 81 MG TAB PO SCH (08:24)
[2017-04-07] MEDS: APIXABAN 5 MG TABLET PO SCH ×2 (08:24→22:15)
[2017-04-07 08:25] VITALS: BP 109/58; RESP 20
[2017-04-07] MEDS: CIPROFLOXACIN 0.3% 2.5 ML OPH RIGHT EYE SCH ×3 (08:27→22:12)
[2017-04-07 16:51] VITALS: BP 119/76; RESP 20
[2017-04-07 20:03] VITALS: BP 108/60; RESP 19
--- NOTE | 2017-04-07 21:19 | PN ---
Date/Time of Note Date/Time of Note DATE: 04/07/17 TIME: 21:18 Assessment/Plan VTE Prophylaxis VTE Prophylaxis Intervention: other (Eliquis) Lines/Catheters IV Catheter Type (from Nrs): Saline Lock Urinary Cath still in place: No Assessment/Plan Assessment/Plan 1. Chest pain- possible secondary to A. fib with RVR -no evidence of ACS with negative troponins -Patient had cardiac cath in December of last year at [facility] which showed mild nonobstructive CAD the patient reports a stress test a month ago that was negative -Patient has multiple hospitalizations for chest pain there is no indication of cardiology consultation is time -Continue air sampling and monitoring -Have increased Cardizem to 240 daily to improve rate - will give robaxin 1000mg BID for muscle relaxant for nonspecific chest pain 2. A-fib with RVR-rate improved -Increase Cardizem to 240 daily -Resume home Eliquis 3. SIRS-resolved -No evidence of cellulitis, UA is negative as his chest x-ray -We will check urinalysis, urine culture and blood culture -Continue Bactrim as he does have a history of recurrent lower extremities cellulitis from lymphedema 4. History of COPD -Oxygen and bronchodilators. As needed steroid 5. Nonobstructive CAD, per 2016 echo from [facility] -Continue cardiac meds, including aspirin and statin 6. Diastolic dysfunction -Diuresis 7. History of psychotic disorder: Currently patient appears stable -Continue medication -Telemetry psych consult as needed 8. History of alcohol abuse -PRN Ativan for now but will initiate banana bag, Librium, etc 9. Conjunctivitis-likely viral versus corneal irritation -Artificial tears Prophylaxis: Lobo Case manageemnt Consult for SNF placement Downgrade to med/surge floor Subjective 24 Hr Interval Summary Free Text/Dictation no acute events, no chest pain, no SOB Exam/Review of Systems Vital Signs Vitals Vital Signs Date Time Temp Pulse Resp B/P Pulse Ox O2 Delivery O2 Flow Rate FiO2 04/07/17 16:51 97.7 80 20 119/76 94 04/07/17 14:15 2.5 04/07/17 14:15 Nasal Cannula 04/04/17 02:40 28 Intake and Output 04/06/17 04/06/17 04/07/17 15:00 23:00 07:00 Intake Total 200 ml 1080 ml Balance 200 ml 1080 ml Exam Constitutional: alert, oriented Respiratory: clear to auscultation Cardiovascular: irregular rhythm Gastrointestinal: soft, No distended Musculoskeletal: No nl extremities to inspection Results Result Diagram: 04/05/17 0734 04/05/17 0734 Results 24 hrs Laboratory Tests Test 04/06/17 21:46 04/07/17 08:26 04/07/17 12:15 04/07/17 17:21 Bedside Glucose 135 93 129 118 Medications Medications Current Medications Aspirin (Aspirin) 81 mg DAILY PO Last administered on 04/07/17 08:24; Admin Dose 81 MG; Start 04/03/17 at 09:00 Ondansetron HCl (Zofran Inj) 4 mg Q6H PRN IV NAUSEA AND/OR VOMITING; Start at 00:30 Acetaminophen (Tylenol Tab) 650 mg Q6H PRN PO PAIN AND OR ELEVATED TEMP Last administered on 04/03/17 14:44; Admin Dose 650 MG; Start 04/03/17 at 00:30 Morphine Sulfate (morphine) 2 mg Q4H PRN IV BREAKTHROUGH PAIN Last administered on 04/07/17 04:33; Admin Dose 2 MG; Start 04/03/17 at 00:30 Diagnostic Test (Pha) (Accu-Chek) 1 ea 02 XX ; Start 04/03/17 at 02:00 Miscellaneous Information 1 ea NOTE XX ; Start 04/03/17 at 01:00 Glucose (Glutose) 15 gm Q15M PRN PO DECREASED GLUCOSE; Start 04/03/17 at 01:00 Glucose (Glutose) 22.5 gm Q15M PRN PO DECREASED GLUCOSE; Start 04/03/17 at 01: 00 Dextrose (D50w Syringe) 25 ml Q15M PRN IV DECREASED GLUCOSE; Start 04/03/17 at 01:00 Dextrose (D50w Syringe) 50 ml Q15M PRN IV DECREASED GLUCOSE; Start 04/03/17 at 01:00 Glucagon (Glucagen) 1 mg Q15M PRN IM DECREASED GLUCOSE; Start 04/03/17 at 01:00 Glucose (Glutose) 15 gm Q15M PRN BUCCAL DECREASED GLUCOSE; Start 04/03/17 at 01 :00 Trimethoprim/ Sulfamethoxazole (Bactrim (Ds)) 1 tab BID PO Last administered on 04/07/17 08:23; Admin Dose 1 TAB; Start 04/03/17 at 10:00 Apixaban (Eliquis) 5 mg BID PO Last administered on 04/07/17 08:24; Admin Dose 5 MG; Start 04/03/17 at 21:00 Diltiazem HCl (Cardizem Cd) 240 mg DAILY PO Last administered on 04/07/17 08: 24; Admin Dose 240 MG; Start 04/05/17 at 09:00 Acetaminophen/ Hydrocodone Bitart ([place] (5/325)) 1 tab Q4H PRN PO SEVERE PAIN LEVEL 7-10 Last administered on 04/07/17 16:48; Admin Dose 1 TAB; Start at 15:30 Ciprofloxacin HCl (Ciloxan 0.3% Oph) 2 drop TID RIGHT EYE Last administered on 04/07/17 12:16; Admin Dose 2 DROP; Start 04/05/17 at 16:30 Methocarbamol (Robaxin) 1,000 mg BID PO Last administered on 04/07/17 08:23; Admin Dose 1,000 MG; Start 04/06/17 at 09:00 OWEN MARTIN MD Apr 07, 2017 21:18
[2017-04-08] MEDS: ACCU-CHEK XX SCH (01:55)
[2017-04-08 02:06] VITALS: BP 117/73; RESP 18
[2017-04-08] MEDS: HYDROCODONE/APAP (5/325) TAB PO PRN ×5 (02:24→23:19)
[2017-04-08] MEDS: ALBUTEROL/IPRATROPIUM (NEB) 3 ML AMP HHN PRN ×3 (05:38→19:11)
[2017-04-08] MEDS: INSULIN ASPART [NOVOLOG] 3 ML PEN SC SCH ×4 (08:00→21:00)
[2017-04-08 08:12] VITALS: BP 105/71; RESP 17
[2017-04-08] MEDS: TRIMETHOPRIM/SULFAMETHOX (DS) TAB PO SCH ×2 (08:45→21:53)
[2017-04-08] MEDS: METHOCARBAMOL 500 MG TAB PO SCH ×2 (08:47→21:53)
[2017-04-08] MEDS: ASPIRIN 81 MG TAB PO SCH (08:48)
[2017-04-08] MEDS: CIPROFLOXACIN 0.3% 2.5 ML OPH RIGHT EYE SCH ×3 (08:48→21:57)
[2017-04-08] MEDS: APIXABAN 5 MG TABLET PO SCH ×2 (08:48→21:49)
[2017-04-08] MEDS: DILTIAZEM (CD) 240 MG CAP PO SCH (08:49)
[2017-04-08] MEDS: morphine 2 MG INJ IV PRN ×3 (10:21→21:53)
[2017-04-08 14:15] VITALS: BP 97/64; RESP 19
[2017-04-08 19:35] VITALS: BP 115/67; RESP 20
--- NOTE | 2017-04-08 21:22 | PN ---
Date/Time of Note Date/Time of Note DATE: 04/08/17 TIME: 21:21 Assessment/Plan VTE Prophylaxis VTE Prophylaxis Intervention: SCD's, other (Eliquis ) Lines/Catheters IV Catheter Type (from [facility]): Saline Lock Urinary Cath still in place: No Assessment/Plan Assessment/Plan 1. Chest pain- possible secondary to A. fib with RVR -no evidence of ACS with negative troponins -Patient had cardiac cath in December of last year at 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 A-fib with RVR-rate improved -Increase Cardizem to 240 daily -Resume home Eliquis 3. SIRS-resolved -No evidence of cellulitis, UA is negative as his chest x-ray -We will check urinalysis, urine culture and blood culture -Continue Bactrim as he does have a history of recurrent lower extremities cellulitis from lymphedema 4. History of COPD -Oxygen and bronchodilators. As needed steroid 5. Nonobstructive CAD, per 2016 echo from [facility] -Continue cardiac meds, including aspirin and statin 6. Diastolic dysfunction -Diuresis 7. History of psychotic disorder: Currently patient appears stable -Continue medication -Telemetry psych consult as needed 8. History of alcohol abuse -PRN Ativan for now but will initiate banana bag, Librium, etc 9. Conjunctivitis-likely viral versus corneal irritation -Artificial tears, CiproFloxacin eye drops Prophylaxis: Eliquis Case manageemnt Consult for SNF placement Exam/Review of Systems Vital Signs Vitals Vital Signs Date Time Temp Pulse Resp B/P Pulse Ox O2 Delivery O2 Flow Rate FiO2 04/08/17 19:11 97 2.5 04/08/17 19:11 92 20 Nasal Cannula 04/08/17 14:15 98.3 97/64 Intake and Output 04/07/17 04/07/17 04/08/17 15:00 23:00 07:00 Intake Total 810 ml 810 ml Balance 810 ml 810 ml Exam Constitutional: alert, oriented Respiratory: clear to auscultation Cardiovascular: irregular rhythm Gastrointestinal: soft, No distended Musculoskeletal: No nl extremities to inspection Results Result Diagram: 04/05/17 0734 04/05/17 0734 Results 24 hrs Laboratory Tests Test 04/07/17 22:10 04/08/17 08:10 04/08/17 12:07 04/08/17 17:36 Bedside Glucose 148 123 128 142 Medications Medications Current Medications Aspirin (Aspirin) 81 mg DAILY PO Last administered on 04/08/17 08:48; Admin Dose 81 MG; Start 04/03/17 at 09:00 Ondansetron HCl (Zofran Inj) 4 mg Q6H PRN IV NAUSEA AND/OR VOMITING; Start at 00:30 Acetaminophen (Tylenol Tab) 650 mg Q6H PRN PO PAIN AND OR ELEVATED TEMP Last administered on 04/03/17 14:44; Admin Dose 650 MG; Start 04/03/17 at 00:30 Morphine Sulfate (morphine) 2 mg Q4H PRN IV BREAKTHROUGH PAIN Last administered on 04/08/17 15:46; Admin Dose 2 MG; Start 04/03/17 at 00:30 Diagnostic Test (Pha) (Accu-Chek) 1 ea 02 XX ; Start 04/03/17 at 02:00 Miscellaneous Information 1 ea NOTE XX ; Start 04/03/17 at 01:00 Glucose (Glutose) 15 gm Q15M PRN PO DECREASED GLUCOSE; Start 04/03/17 at 01:00 Glucose (Glutose) 22.5 gm Q15M PRN PO DECREASED GLUCOSE; Start 04/03/17 at 01: 00 Dextrose (D50w Syringe) 25 ml Q15M PRN IV DECREASED GLUCOSE; Start 04/03/17 at 01:00 Dextrose (D50w Syringe) 50 ml Q15M PRN IV DECREASED GLUCOSE; Start 04/03/17 at 01:00 Glucagon (Glucagen) 1 mg Q15M PRN IM DECREASED GLUCOSE; Start 04/03/17 at 01:00 Glucose (Glutose) 15 gm Q15M PRN BUCCAL DECREASED GLUCOSE; Start 04/03/17 at 01 :00 Trimethoprim/ Sulfamethoxazole (Bactrim (Ds)) 1 tab BID PO Last administered on 04/08/17 08:45; Admin Dose 1 TAB; Start 04/03/17 at 10:00 Apixaban (Eliquis) 5 mg BID PO Last administered on 04/08/17 08:48; Admin Dose 5 MG; Start 04/03/17 at 21:00 Diltiazem HCl (Cardizem Cd) 240 mg DAILY PO Last administered on 04/08/17 08: 49; Admin Dose 240 MG; Start 04/05/17 at 09:00 Acetaminophen/ Hydrocodone Bitart ([place] (5/325)) 1 tab Q4H PRN PO SEVERE PAIN LEVEL 7-10 Last administered on 04/08/17 17:48; Admin Dose 1 TAB; Start at 15:30 Ciprofloxacin HCl (Ciloxan 0.3% Oph) 2 drop TID RIGHT EYE Last administered on 04/08/17 12:46; Admin Dose 2 DROP; Start 04/05/17 at 16:30 Methocarbamol (Robaxin) 1,000 mg BID PO Last administered on 04/08/17 08:47; Admin Dose 1,000 MG; Start 04/06/17 at 09:00 OWEN MARTIN MD Apr 08, 2017 21:21
[2017-04-09 01:57] VITALS: BP 105/62; RESP 16
[2017-04-09] MEDS: ACCU-CHEK XX SCH (02:00)
[2017-04-09] MEDS: morphine 2 MG INJ IV PRN ×4 (02:25→16:46)
[2017-04-09] MEDS: HYDROCODONE/APAP (5/325) TAB PO PRN ×4 (04:54→18:22)
[2017-04-09 07:55] VITALS: BP 101/61; RESP 18
[2017-04-09] MEDS: INSULIN ASPART [NOVOLOG] 3 ML PEN SC SCH ×3 (08:00→18:05)
[2017-04-09] MEDS: CIPROFLOXACIN 0.3% 2.5 ML OPH RIGHT EYE SCH ×2 (08:17→12:38)
[2017-04-09] MEDS: METHOCARBAMOL 500 MG TAB PO SCH (08:17)
[2017-04-09] MEDS: ASPIRIN 81 MG TAB PO SCH (08:17)
[2017-04-09] MEDS: APIXABAN 5 MG TABLET PO SCH (08:17)
[2017-04-09] MEDS: TRIMETHOPRIM/SULFAMETHOX (DS) TAB PO SCH (08:17)
[2017-04-09] MEDS: DILTIAZEM (CD) 240 MG CAP PO SCH (08:21)
[2017-04-09 09:00] VITALS: BP 132/60; PULSE 81
[2017-04-09] MEDS: ALBUTEROL/IPRATROPIUM (NEB) 3 ML AMP HHN PRN (10:08)
[2017-04-09 14:27] VITALS: BP 119/71; RESP 16
--- NOTE | 2017-04-09 18:18 | PN ---
Date/Time of Note Date/Time of Note DATE: 04/09/17 TIME: 18:17 Assessment/Plan VTE Prophylaxis VTE Prophylaxis Intervention: other (Eliquis ) Lines/Catheters IV Catheter Type (from Nrs): Saline Lock Urinary Cath still in place: No Assessment/Plan Assessment/Plan 1. Chest pain- possible secondary to A. 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 A-fib with RVR-rate improved -Increase Cardizem to 240 daily -Resume home Eliquis 3. SIRS-resolved -No evidence of cellulitis, UA is negative as his chest x-ray -We will check urinalysis, urine culture and blood culture -Continue Bactrim as he does have a history of recurrent lower extremities cellulitis from lymphedema 4. History of COPD -Oxygen and bronchodilators. As needed steroid 5. Nonobstructive CAD, per [address] [facility] -Continue cardiac meds, including aspirin and statin 6. Diastolic dysfunction -Diuresis 7. History of psychotic disorder: Currently patient appears stable -Continue medication -Telemetry psych consult as needed 8. History of alcohol abuse -PRN Ativan for now but will initiate banana bag, Librium, etc 9. Conjunctivitis-likely viral versus corneal irritation -Artificial tears, CiproFloxacin eye drops Prophylaxis: Eliquis possible d/c to SNF as arranged Exam/Review of Systems Vital Signs Vitals Vital Signs Date Time Temp Pulse Resp B/P Pulse Ox O2 Delivery O2 Flow Rate FiO2 04/09/17 14:27 54 16 119/71 96 04/09/17 10:14 2.5 04/09/17 10:12 Nasal Cannula 04/09/17 07:55 98.1 Intake and Output 04/08/17 04/08/17 04/09/17 15:00 23:00 07:00 Intake Total 1500 ml 570 ml Balance 1500 ml 570 ml Exam Constitutional: alert, oriented Respiratory: clear to auscultation Cardiovascular: irregular rhythm Gastrointestinal: soft, No distended Musculoskeletal: No nl extremities to inspection Results Result Diagram: 04/05/17 0734 04/05/17 0734 Results 24 hrs Laboratory Tests Test 04/08/17 21:26 04/09/17 12:29 04/09/17 17:36 Bedside Glucose 132 140 120 Medications Medications Current Medications Aspirin (Aspirin) 81 mg DAILY PO Last administered on 04/09/17 08:17; Admin Dose 81 MG; Start 04/03/17 at 09:00 Ondansetron HCl (Zofran Inj) 4 mg Q6H PRN IV NAUSEA AND/OR VOMITING; Start at 00:30 Acetaminophen (Tylenol Tab) 650 mg Q6H PRN PO PAIN AND OR ELEVATED TEMP Last administered on 04/03/17 14:44; Admin Dose 650 MG; Start 04/03/17 at 00:30 Morphine Sulfate (morphine) 2 mg Q4H PRN IV BREAKTHROUGH PAIN Last administered on 04/09/17 16:46; Admin Dose 2 MG; Start 04/03/17 at 00:30 Diagnostic Test (Pha) (Accu-Chek) 1 ea 02 XX ; Start 04/03/17 at 02:00 Miscellaneous Information 1 ea NOTE XX ; Start 04/03/17 at 01:00 Glucose (Glutose) 15 gm Q15M PRN PO DECREASED GLUCOSE; Start 04/03/17 at 01:00 Glucose (Glutose) 22.5 gm Q15M PRN PO DECREASED GLUCOSE; Start 04/03/17 at 01: 00 Dextrose (D50w Syringe) 25 ml Q15M PRN IV DECREASED GLUCOSE; Start 04/03/17 at 01:00 Dextrose (D50w Syringe) 50 ml Q15M PRN IV DECREASED GLUCOSE; Start 04/03/17 at 01:00 Glucagon (Glucagen) 1 mg Q15M PRN IM DECREASED GLUCOSE; Start 04/03/17 at 01:00 Glucose (Glutose) 15 gm Q15M PRN BUCCAL DECREASED GLUCOSE; Start 04/03/17 at 01 :00 Trimethoprim/ Sulfamethoxazole (Bactrim (Ds)) 1 tab BID PO Last administered on 04/09/17 08:17; Admin Dose 1 TAB; Start 04/03/17 at 10:00 Apixaban (Eliquis) 5 mg BID PO Last administered on 04/09/17 08:17; Admin Dose 5 MG; Start 04/03/17 at 21:00 Diltiazem HCl (Cardizem Cd) 240 mg DAILY PO Last administered on 04/09/17 08: 21; Admin Dose 240 MG; Start 04/05/17 at 09:00 Acetaminophen/ Hydrocodone Bitart ([place] (5/325)) 1 tab Q4H PRN PO SEVERE PAIN LEVEL 7-10 Last administered on 04/09/17 13:58; Admin Dose 1 TAB; Start at 15:30 Ciprofloxacin HCl (Ciloxan 0.3% Oph) 2 drop TID RIGHT EYE Last administered on 04/09/17 12:38; Admin Dose 2 DROP; Start 04/05/17 at 16:30 Methocarbamol (Robaxin) 1,000 mg BID PO Last administered on 04/09/17 08:17; Admin Dose 1,000 MG; Start 04/06/17 at 09:00 OWEN MARTIN MD Apr 09, 2017 18:17
== END 2017-04-09 18:40 | DRG 309 ==
LOC: E/R 19:25 → MS4 22:29 → PP2 04-06 14:15
PROVIDERS: ADMIT Hospitalist; ATTEND Hospitalist
DX: I48.91 Unspecified atrial fibrillation (principal); R65.10 Systemic inflammatory response syndrome (SIRS) of non-infectious origin without acute organ dysfunction; R07.9 Chest pain, unspecified; I25.10 Atherosclerotic heart disease of native coronary artery without angina pectoris; J44.9 Chronic obstructive pulmonary disease, unspecified; H10.9 Unspecified conjunctivitis; F29 Unspecified psychosis not due to a substance or known physiological condition; F10.10 Alcohol abuse, uncomplicated
CPT/HCPCS: 71010; 80048; 80061; 80307; 81003; 82550; 82553; 82962; 83036; 83735; 83880; 84100; 84443; 84484; 85025; 85610; 85730; 87040; 87086; 93005; 94640; 94664; J1644; J1815; J2270

== ENCOUNTER 2018-05-16 17:10 | Inpatient (IN) | END 2018-05-18 20:50 | disposition left against medical advice (07) | DRG 292 ==

== ENCOUNTER 2018-06-08 16:16 | Emergency (ER) | END 2018-06-08 20:08 | disposition left against medical advice (07) ==

== ENCOUNTER 2018-06-10 07:52 | Emergency (ER) | END 2018-06-10 11:20 | disposition home or self-care (01) ==

== ENCOUNTER 2018-06-20 18:16 | Inpatient (IN) | END 2018-06-23 14:45 | disposition home or self-care (01) | DRG 292 ==